=== PATIENT | female | born 1955 | race Caucasian/White ===

== ENCOUNTER 2016-06-20 05:32 | Day surgery (SDC) | payer BC ==
[2016-06-16 09:27] LABS: HEMOGLOBIN 13.4 g/dL (12.0-16.0)
[2016-06-16 09:38] LABS: BUN (BLOOD UREA NITROGEN) 13 MG/DL (6-23); CALCIUM, SERUM 9.1 MG/DL (8.5-10.4); CHLORIDE, SERUM 110 MMOL/L (96-112); CO2 (CARBON DIOXIDE) 28 MMOL/L (24-34); CREATININE 0.71 MG/DL (0.55-1.02); GFR AFRICAN AMERICAN 105 ML/MIN (>=60); GFR NON AFRICAN AMERICAN 91 ML/MIN (>=60); GLUCOSE, SERUM 79 MG/DL (60-99); POTASSIUM, SERUM 4.2 MMOL/L (3.5-5.3); SODIUM, SERUM 143 MMOL/L (135-148)
--- NOTE | ~2016-06-20 | OP ---
Record Of Operation [facility] [address] [place]. [address] NAME: HAFSA SEN : 51 STATUS : REG [facility] PAT#: [id number] AGE: 61 ADM/REG DATE : 06/20/16 MR#: [id number] REPORT SERV DATE: 06/20/16 DICTATED BY: JI ALCANTAR DATE: 06/20/16 REPORT STATUS : Draft TRANSCRIBED BY: MODL DATE: 06/20/16 DATE OF PROCEDURE: 06/20/2016 PREOPERATIVE DIAGNOSIS: Left-sided L5-S1 disk herniation with stenosis and lumbar radiculopathy. POSTOPERATIVE DIAGNOSIS: Left-sided L5-S1 disk herniation with stenosis and lumbar radiculopathy. PROCEDURE: Left-sided L5-S1 microdiscectomy, use of operative microscope, minimal access spine technology, and intraoperative O-arm CT scan with computer navigation. SURGEON: Ji Alcantar DO. ANESTHESIA: General. ESTIMATED BLOOD LOSS: 5 mL. COMPLICATIONS: None. INDICATIONS: The patient is a pleasant 61-year-old female with intractable left leg pain, failed conservative treatment. After discussion of risks and benefits, the patient proceeded with surgery. PROCEDURE IN DETAIL: I identified the patient in the holding area, a consent was obtained, she went to the operating room, underwent general anesthesia with endotracheal intubation, prepped and draped in the usual sterile fashion, operative safety pause was performed, and then we proceeded with surgery. The O-arm registration frame was placed in the iliac crest, the O-arm was brought in for an intraoperative CT scan, computer registration materials were verified. Under computer guidance, a left longitudinal incision was made over the L5-S1 level, taken down through the fascial layer, tube dilators were used to minimally invasively dissect down to the left L5-S1 interspace. Operative microscope was brought in, a karuna was used to perform a laminotomy, Zaria performed a foraminotomy. A large extruded disk fragment was seen under the exiting nerve root, removed with pituitary. A knife was used to incise the disk and additional fragments were removed with the pituitary. L5 and S1 nerve roots were free of compression at the end of the case. Irrigation performed. Hemostasis achieved. 40 mg Depo-Medrol injected over the nerve roots. Layered closure performed. Sterile dressings applied. The patient was awoken, extubated, and taken to the recovery room in stable condition. OPERATIVE FINDINGS: Left L5-S1 disk herniation with stenosis and nerve compression. JOSEFINA/NENA Record Of [place] [address]. [address] NAME: HAFSA SEN : 51 STATUS : REG [facility] PAT#: [id number] AGE: 61 ADM/REG DATE : 06/20/16 MR#: [id number] REPORT SERV DATE: 06/20/16 DICTATED BY: JI ALCANTAR DATE: 06/20/16 REPORT STATUS : Draft TRANSCRIBED BY: NENA DATE: 06/20/16 Ji Alcantar DO / [id number] CC: DO Taylor Urban M.D.
[~2016-06-20 05:32] MED LIST: ADVIL PO; CELEXA20 PO; LOP50 PO; NORCO1 TA2 PO; NORV10 PO
== END 2016-06-20 16:59 | disposition home or self-care (01) ==
LOC: SDC 05:32
PROVIDERS: Orthopaedic Surgery
PROC: 0SB40ZZ Excision of Lumbosacral Disc, Open Approach (ICD-10-PCS; principal; 2016-06-20 06:45)
DX: M51.17 Intervertebral disc disorders with radiculopathy, lumbosacral region (principal); I10 Essential (primary) hypertension; Z90.710 Acquired absence of both cervix and uterus; Z98.41 Cataract extraction status, right eye; Z98.42 Cataract extraction status, left eye; Z87.442 Personal history of urinary calculi
CPT/HCPCS: 80048; 85014; 85018; 88304; 88311; 93005; A9270-GY; J0690; J1030; J1170; J2250; J2405; J2550; J2710; J3010